=== PATIENT | male | born 1995 | race Caucasian/White ===

== ENCOUNTER 2017-09-10 17:33 | Emergency (ER) | payer BC, OTHER ==
[~2017-09-10] VITALS: Ht 205.7 cm; Wt 92.7 kg
[2017-09-10 17:52] VITALS: BP 144/77
== END 2017-09-10 18:28 | disposition home or self-care (01) ==
LOC: ED 18:22
DX: S39.012A Strain of muscle, fascia and tendon of lower back, initial encounter (principal); X58.XXXA Exposure to other specified factors, initial encounter; Y93.89 Activity, other specified; Y99.8 Other external cause status; Y92.89 Other specified places as the place of occurrence of the external cause
CPT/HCPCS: 99283

== ENCOUNTER 2019-02-20 12:31 | Emergency (ER) | payer MEDICAID ==
[~2019-02-20] VITALS: Ht 203.2 cm; Wt 90.7 kg
[2019-02-20 12:36] VITALS: BP 132/67
[2019-02-20] MEDS ORDERED: SODIUM CHLORIDE FLUSH 10ML SYR IVF ONE (13:00)
[2019-02-20] MEDS ORDERED: SODIUM CHLORIDE 0.9% 1,000ML IVBOLUS ONE (13:00)
[2019-02-20 13:24] LABS: BASOPHILS # (AUTO) 0.03 x10^3/uL (0-0.1); BASOPHILS % (AUTO) 0 % (0-1); EOSINOPHILS # (AUTO) 0.03 x10^3/uL (0-0.4); EOSINOPHILS % (AUTO) 0 % (1-7); LYMPHOCYTES % (AUTO) 8 % (22-44); MD NO; MEAN CORPUSCULAR HEMOGLOBIN 33.7 pg (27.5-34.5); MEAN CORPUSCULAR HGB CONC 34.7 g/dL (33.2-36.2); MEAN CORPUSCULAR VOLUME 97.2 fL (81-97); MEAN PLATELET VOLUME 8.5 fL (7.4-10.4); MONOCYTES # (AUTO) 0.56 x10^3/uL (0.2-0.8); MONOCYTES % (AUTO) 7 % (2-9); NEUTROPHILS # (AUTO) 6.93 x10^3/uL (1.8-6.8); NEUTROPHILS % (AUTO) 84 % (42-75); PLATELET COUNT 178 x10^3/uL (130-400); RED BLOOD COUNT 4.97 x10^6/uL (4.38-5.82); RED CELL DISTRIBUTION WIDTH 12.8 % (9.4-14.8)
[2019-02-20] MEDS ORDERED: ONDANSETRON 2MG/ML, 2ML IVPush ONE (13:30)
[2019-02-20 13:35] LABS: ALANINE AMINOTRANSFERASE 24 U/L (12-78); ALBUMIN 3.6 g/dL (3.4-5.0); ANION GAP 8 mmol/L (5-15); CALCIUM 9.1 mg/dL (8.5-10.1); CHLORIDE 106 mmol/L (98-107); CREATININE 1.07 mg/dL (0.7-1.3)
[2019-02-20 13:38] LABS: ALKALINE PHOSPHATASE 72 U/L (45-117); TOTAL PROTEIN 7.7 g/dL (6.4-8.2)
[2019-02-20] MEDS ORDERED: ONDANSETRON 2MG/ML, 2ML ONE (13:57)
[2019-02-22 15:49] LABS: RAPID PLASMA REAGIN Nonreactive (Nonreactive)
[2019-02-23 16:05] LABS: ANA SCREEN NEGATIVE (Negative)
== END 2019-02-20 15:29 | disposition home or self-care (01) ==
LOC: ED 13:27
DX: B34.9 Viral infection, unspecified (principal); F41.1 Generalized anxiety disorder
CPT/HCPCS: 36415; 80053; 85025; 86038; 86592; 86695; 86696; 87491; 87529; 87591; 93005; 96361; 96374; 99284; J2405; J7030

== ENCOUNTER 2019-09-25 12:30 | Emergency (ER) | payer SELFPAY ==
[~2019-09-25] VITALS: Ht 203.2 cm; Wt 98.8 kg
--- NOTE | 2019-09-25 13:12 | NUR ---
PT C/O RIGHT SIDED CP WORSE WITH WALKING PER PT OVER LAST COUPLE YEARS BUT HAS GOTTEN WORSE NRECENTLY. PT HAS HX OF HTN, NOT ON MEDS. PT ANXIOUS AND REPORTS SOB. WAITING FOR ORDERS.
[2019-09-25] MEDS ORDERED: ASPIRIN 81 MG TABLET CHEW PO ONE (13:30)
[2019-09-25] MEDS ORDERED: ASPIRIN 81 MG TABLET CHEW ONE (13:35)
[2019-09-25 13:44] LABS: BASOPHILS # (AUTO) 0.02 x10^3/uL (0-0.1); BASOPHILS % (AUTO) 0 % (0-1); EOSINOPHILS # (AUTO) 0.03 x10^3/uL (0-0.4); EOSINOPHILS % (AUTO) 1 % (1-7); LYMPHOCYTES # (AUTO) 1.65 x10^3/uL (1-3.4); LYMPHOCYTES % (AUTO) 36 % (22-44); MD NO; MEAN CORPUSCULAR HEMOGLOBIN 32.9 pg (27.5-34.5); MEAN CORPUSCULAR HGB CONC 33.7 g/dL (33.2-36.2); MEAN CORPUSCULAR VOLUME 97.6 fL (81-97); MONOCYTES # (AUTO) 0.31 x10^3/uL (0.2-0.8); MONOCYTES % (AUTO) 7 % (2-9); NEUTROPHILS # (AUTO) 2.55 x10^3/uL (1.8-6.8); NEUTROPHILS % (AUTO) 56 % (42-75); PLATELET COUNT 152 x10^3/uL (130-400); RED CELL DISTRIBUTION WIDTH 12.8 % (9.4-14.8)
[2019-09-25 13:51] LABS: ALANINE AMINOTRANSFERASE 27 U/L (12-78); ANION GAP 6 mmol/L (5-15); CALCIUM 9.1 mg/dL (8.5-10.1); CHLORIDE 108 mmol/L (98-107); CREATININE 1.13 mg/dL (0.7-1.3)
[2019-09-25 13:56] LABS: ALKALINE PHOSPHATASE 54 U/L (45-117); BILIRUBIN,TOTAL 0.4 mg/dL (0.2-1.0); TOTAL PROTEIN 7.1 g/dL (6.4-8.2); TROPONIN I < 0.015 ng/mL (0.000-0.045)
--- NOTE | 2019-09-25 14:20 | NUR ---
ECHO AT BEDSIDE. VSS.
--- NOTE | 2019-09-25 15:30 | NUR ---
CARDIOLOGY PAGED JESSICA TO READ ECHO. PT AWARE.
--- NOTE | 2019-09-25 16:08 | NUR ---
STILL WAITING ON CARDIOLOGY TO READ ECHO. PT IN NAD. 3 P'S ADDRESSED.
[2019-09-25 16:16] VITALS: BP 101/74
== END 2019-09-25 16:33 | disposition home or self-care (01) ==
LOC: ED 13:31
DX: R07.2 Precordial pain (principal); I10 Essential (primary) hypertension; R06.00 Dyspnea, unspecified
CPT/HCPCS: 36415; 71045; 80053; 84484; 85025; 93005; 93306; 99284